=== PATIENT | female | born 1995 | race Two or more races ===

== ENCOUNTER 2024-01-30 16:01 | Emergency (ER) | payer BC, SELFPAY ==
[2024-01-30 16:44] VITALS: BP 152/99; PULSE 93; RESP 16; TEMP 37.3; O2SAT 97; BMI 37.4
--- NOTE | 2024-01-30 16:54 | XR_ITS ---
[address] [address] Patient Name: JOSEPHINE YE MRN: [id number] date: 1995 Sex: F Assigned Patient Location: ER Current Patient Location: ED.MAIN Accession/Order Number: [id number] Exam Date: 01/30/2024 17:47 Report Date: 01/30/2024 18:24 At the request of: JACINTO PURDY Procedure: XR chest 2V Exam: Radiographs: XR chest 2V Reason for exam: painful cough Comparison: None XR/XR chest 2V IMPRESSION: Unremarkable chest x-ray. Electronically authenticated by: LEMUEL PEDRO Date: 01/30/2024 18:24
[2024-01-30 17:44] LABS: SARS-CoV-2 Ag NEGATIVE (NEGATIVE)
[2024-01-30 17:45] LABS: Influenza Virus A Antigen Negative; Influenza Virus B Antigen Negative; Internal Control Within Normal Limits; Strep A Antigen Screen Negative
--- NOTE | 2024-01-30 18:22 | ED_ITS ---
HPI - URI/Sore Throat General Chief Complaint: Upper Respiratory Infection Stated Complaint: URTI - seen at Urgent Care on Tuesday Time Seen by Provider: 01/30/24 17:43 Source: patient Limitations: no limitations History of Present Illness HPI Narrative: Patient is a 28-year-old female who presents to the emergency department for second opinion on her upper respiratory illness. She states 1 week ago she went to urgent care for subjective fevers, chills, body aches, nasal congestion, cough, diarrhea. She had negative viral testing and was diagnosed with a sinus infection. She was placed on doxycycline and 20 mg of prednisone a day for 5 days. She is not concerned for . She states she has continued to have cough and chest congestion which is her primary concern. She states she does not believe she had a sinus infection and does not feel any better. Related Data Home Medications ?Medication ?Instructions ?Recorded ?Confirmed doxycycline hyclate 100 mg capsule 100 mg PO Q12H 01/30/24 01/30/24 levonorgestrel 0.15 mg-ethinyl 1 tab PO QDAY 01/30/24 01/30/24 estradiol 30 mcg tablets,3 mos pack(91) prednisone 20 mg tablet 20 mg PO QDAY 01/30/24 01/30/24 Previous Rx's ?Medication ?Instructions ?Recorded gqdidcrudyvazje-gylmaljwmlcfcpe-WI 10 ml PO Q6H PRN cold symptoms 01/30/24 2 mg-30 mg-10 mg/5 mL oral syrup #200 mL (Bromfed DM) methylprednisolone 4 mg tablets in See Rx Instructions .Route 01/30/24 a dose pack (Medrol (Sammy)) .COMPLEX #21 ea Allergies Allergy/AdvReac Type Severity Reaction Status Date / Time Cephalosporins Allergy Verified 01/30/24 16:41 Review of Systems ROS Constitutional Reports: fever and chills Ears, nose, mouth, and throat Reports: throat pain and nasal congestion Respiratory Reports: cough and change in phlegm color; Denies: coughing up blood Gastrointestinal Reports: diarrhea; Denies: nausea or vomiting Musculoskeletal Denies: back pain Integumentary/Breast Denies: rash Neurological Reports: headache Exam Narrative Exam Narrative: Gen.: Awake, alert, in no distress Head: Normocephalic, atraumatic ENT: Moist mucous membranes, Bilateral TMs clear. No pharyngeal erythema Respiratory: No respiratory distress, lungs clear bilaterally Cardio: Regular rate and rhythm Extremities: Moves extremities equally Psych: Normal mood and affect Neuro: No focal neuro deficit Skin: Warm, dry, intact Constitutional Vital Signs, click to edit/add: Last Vital Signs Temp 99.1 F 01/30/24 16:44 Pulse 93 H 01/30/24 16:44 Resp 16 01/30/24 16:44 BP 152/99 H 01/30/24 16:44 Pulse Ox 97 01/30/24 16:44 O2 Del Method Room Air 01/30/24 16:44 Course Vital Signs Vital signs: Vital Signs Temperature 99.1 F 01/30/24 16:44 Pulse Rate 93 H 01/30/24 16:44 Respiratory Rate 16 01/30/24 16:44 Blood Pressure 152/99 H 01/30/24 16:44 Pulse Oximetry 97 01/30/24 16:44 Oxygen Delivery Method Room Air 01/30/24 16:44 Temperature 99.1 F 01/30/24 16:44 Pulse Rate 93 H 01/30/24 16:44 Respiratory Rate 16 01/30/24 16:44 Blood Pressure 152/99 H 01/30/24 16:44 Pulse Oximetry 97 01/30/24 16:44 Oxygen Delivery Method Room Air 01/30/24 16:44 MDM - URI/Sore Throat MDM Narrative Medical decision making narrative: X-ray reviewed by myself and Dr. Green, appears unremarkable. Patient with stable vital signs. Repeated COVID, flu and strep testing which is negative. Patient counseled she likely had viral upper respiratory infection, possibly flu or COVID that did not turn positive on testing. She is given a steroid burst as she was very underdosed by urgent care. She was given Bromfed-DM and a Medrol Dosepak for home. Follow-up with PCP and return to the ER if symptoms change or worsen Medical Records Attestation: I reviewed the patient's medical records. Lab Data Attestation: I reviewed the patient's lab results. Labs: Lab Results 01/30/24 Range/Units 16:55 Influenza Type A Ag Negative Influenza Type B Ag Negative SARS-CoV-2 Ag (CV2AG) Negative (NEGATIVE) Streptococcus Screen Negative Imaging Data Chest x-ray: Attestation: I have reviewed the pertinent imaging results. Discharge Plan Discharge Stand Alone Forms: Portal Instructions Chief Complaint: Upper Respiratory Infection Clinical Impression: Upper respiratory infection Patient Disposition: Home, Self-Care Time of Disposition Decision: 18:22 Condition: Good Prescriptions / Home Meds: New methylprednisolone [Medrol (Sammy)] 4 mg tablets,dose pack See Rx Instructions .ROUTE .COMPLEX Qty: 21 0RF Rx Instructions: Taper as directed iqzydfvkvglufly-mzpzxcnwh-AJ [Bromfed DM] 2-30-10 mg/5 mL syrup 10 ml PO Q6H PRN (Reason: cold symptoms) Qty: 200 0RF No Action doxycycline hyclate 100 mg capsule 100 mg PO Q12H prednisone 20 mg tablet 20 mg PO QDAY levonorgestrel-ethinyl estrad 0.15 mg-30 mcg (91) tablets,dose pack,3 month 1 tab PO QDAY Print Language: Maldivian Instructions: Upper Respiratory Infection (ED), Viral Syndrome (ED) Referrals: Physician,Non-Staff, MD [Primary Care Provider] - 1 week
== END 2024-01-30 18:33 | disposition home or self-care (01) ==
PROVIDERS: Emergency Provider Emergency Medicine
DX: J06.9 Acute upper respiratory infection, unspecified (principal); Z20.822 Contact with and (suspected) exposure to COVID-19; Z79.3 Long term (current) use of hormonal contraceptives; Z79.899 Other long term (current) drug therapy
CPT/HCPCS: 71046; 87070; 87804; 87811; 87880; 99284

== ENCOUNTER 2025-09-19 18:46 | Outpatient (REF) | payer BC, SELFPAY ==
--- OUTSIDE RECORDS SUMMARY | 2025-09-19 14:00 | XMS_ITS | Encounter Summary ---
Author Organization [facility] Address [address] [place] [address] Care Team Providers Care Lap Cutter Name Role Phone Justino Sergey Gibson DO Primary Care Provider [phone] Katie Clark DRY COLOR TESTER Unavailable Reason for Visit * ReasonCommentsGynecologic Exam Encounter Details DateTypeDepartmentCare Team (Latest Contact Info)Kbdqcbggasi65/13/2025 2:00 PM ESTProcedure Visit NOMEnrique Berry OBJOVANNA [address] [place] [address] Katherine Khan PA [address] [place] [address] Well woman exam with routine gynecological exam Social History Tobacco UseTypesPacks/DayYears UsedDateSmoking Tobacco: NeverSmokeless Tobacco: NeverAlcohol UseStandard Drinks/WeekCommentsNever0 (1 standard drink = 0.6 oz pure alcohol)B1300 Health LiteracyAnswerDate RecordedHow often do you need to have someone help you when you read instructions, pamphlets, or other written material from your doctor or pharmacy?Often02/20/2025Humiliation, Afraid, Rape, and Kick questionnaireAnswerDate RecordedWithin the last year, have you been afraid of your partner or ex-partner?No02/20/2025Within the last year, have you been humiliated or emotionally abused in other ways by your partner or ex-partner?No02/20/2025Within the last year, have you been kicked, hit, slapped, or otherwise physically hurt by your partner or ex-partner?No02/20/2025Within the last year, have you been raped or forced to have any kind of sexual activity by your partner or ex-partner?02/20/2025Social Connection and Isolation Panel AnswerDate RecordedIn a typical week, how many times do you talk on the phone with family, friends, or neighbors?More than three times a week02/20/2025How often do you get together with friends or relatives?Once a week02/20/2025How often do you attend yarsanism or orthodox services?1 to 4 times per year02/20/2025 Do you belong to any clubs or organizations such as yarsanism groups, unions, fraEmotify or athletic groups, or school groups?No02/20/2025How often do you attend meetings of the clubs or organizations you belong to?Never02/20/2025re you , , , , never , or living with a partner?Never mcctqry6102/20/2025UDIT-CAnswerDate RecordedQ1: How often do you have a drink containing alcohol?Never02/20/2025Q2: How many drinks containing alcohol do you have on a typical day when you are drinking?1 or Q3: How often do you have six or more drinks on one occasion?Never02/20/2025Overall Financial Resource Strain (CARDIA)AnswerDate RecordedHow hard is it for you to pay for the very basics like food, housing, medical care, and heating?Not very hard02/20/2025PHQ-2AnswerDate RecordedPatient Health Questionnaire-2 Score0 05/20/2025Fin[facility] [place] of Occupational Health - Occupational Stress QuestionnaireAnswerDate RecordedDo you feel stress - tense, restless, nervous, or anxious, or unable to sleep at night because yourmind is troubled all the time - these days?To some otngnx4002/20/2025Exercise Vital SignAnswerDate Recorded On average, how many days per week do you engage in moderate to strenuous exercise (like a brisk walk)?3 days02/20/2025On average, how many minutes do you engage in exercise at this level?30 min02/20/2025Hunger Vital SignAnswerDate RecordedWithin the past 12 months, you worried that your food would run out before you got the money to buymore.Never true02/20/2025Within the past 12 months, the food you bought just didn't last and you didn't have money to get more.Never true02/20/2025PRAPARE - TransportationAnswerDate RecordedIn the past 12 months, has lack of transportation kept you from medical appointments or from getting medications?No02/20/2025In the past 12 months, has lack of transportation kept you from meetings, work, or from getting things needed for daily living?No02/20/2025Housing Stability Vital SignAnswerDate RecordedIn the last 12 months, was there a time when you were not able to pay the mortgage or rent on time?Yes02/20/2025In the past 12 months, how many times have you moved where you were living?t any time in the past 12 months, were you homeless or living in a halfway (including now)?No02/20/2025CommentsNo Sex and Gender InformationValueDate RecordedSex Assigned at BirthNot on file Legal PrcJjazmh05/15/2023 11:01 PM EDTGender IdentityNot on fileSexual OrientationNot on filedocumented as of this encounter Last Filed Vital Signs Vital SignReadingTime TakenCommentsBlood Hzjzjgvo984/7209/19/2025 1:53 PM EST Pulse--Temperature--Respiratory Rate--Oxygen Saturation--Inhaled Oxygen Concentration--Iriaex52.4 kg (164 lb)09/19/2025 1:53 PM SENFvisxg202.9 cm (5' 1 )09/19/2025 1:53 PM ESTBody Mass Index30.9909/19/2025 1:53 PM ESTdocumented in this encounter Progress Notes * Collette Salas MA - 09/19/2025 2:00 PM EST Reason for Appointment: Patient ID: Karena Kevin is a 30 y.o. female who presents for Gynecologic Exam Patient presents today for Annual Exam. MEDICATIONS Current Outpatient Medications Medication Instructions cholecalciferol (VITAMIN D-3) 5,000 Units, Daily ALLERGIES Allergies Allergen Reactions Cephalosporins Unknown and Hives Other Reaction(s): Hives Other Reaction(s): Not available Loracarbef hives Other Reaction(s): Rash PROBLEMS Active Ambulatory Problems Diagnosis Date Noted Anxiety disorder 01/31/2025 Chronic low back pain 01/31/2025 Depressive disorder 09/18/2021 Gastroesophageal reflux disease without esophagitis 03/18/2022 Major depression, single episode 01/31/2025 Menstrual disorder 01/31/2025 Obese abdomen 01/31/2025 Polycystic ovaries 01/31/2025 Vitamin D deficiency 01/31/2025 Bilateral carpal tunnel syndrome 02/18/2025 Resolved Ambulatory Problems Diagnosis Date Noted Chlamydial infection 12/15/2021 Past Medical History: Diagnosis Date Acid reflux Anxiety Depression PCOS (polycystic ovarian syndrome) HISTORY PAST MEDICAL HISTORY SOCIAL HISTORY Past Medical History: Diagnosis Date Acid reflux Anxiety Chlamydial infection 12/15/2021 Depression PCOS (polycystic ovarian syndrome) Social History Tobacco Use Smoking status: Never Smokeless tobacco: Never Vaping Use Vaping status: Never Used Substance Use Topics Alcohol use: Never Drug use: Never FAMILY HISTORY Family History Problem Relation Name Age of Onset Hypertension Father Dawood Kevin Diabetes Father Dawood Kevin Depression Sister 2 Anxiety disorder Sister 2 No Known Problems Brother 1 SURGICAL HISTORY Past Surgical History: Procedure Laterality Date ABCESS DRAINAGE EGD REVIEW OF SYSTEMS Review of Systems: Review of Systems Constitutional: Negative. HENT: Negative. Eyes: Negative. Respiratory: Negative. Cardiovascular: Negative. Gastrointestinal: Negative. Genitourinary: Negative. Musculoskeletal: Negative. Skin: Negative. Neurological: Negative. All other systems reviewed and are negative. Hematological: Negative. Endocrine: Negative. Allergic/Immunologic: Negative. OBJECTIVE Objective: Physical Exam Constitutional: Appearance: Normal appearance. She is well-developed. Genitourinary: Breasts: Breasts are soft. Right: Normal. Left: Normal. Cardiovascular: Rate and Rhythm: Normal rate and regular rhythm. Pulmonary: Effort: Pulmonary effort is normal. Breath sounds: Normal breath sounds. Abdominal: General: Bowel sounds are normal. There is no distension. Palpations: Abdomen is soft. Tenderness: There is no abdominal tenderness. There is no guarding or rebound. Musculoskeletal: General: No swelling. Normal range of motion. Right lower leg: No edema. Left lower leg: No edema. Neurological: Mental Status: She is alert and oriented to person, place, and time. Skin: General: Skin is warm and dry. Psychiatric: Mood and Affect: Mood normal. Behavior: Behavior normal. Vitals and nursing note reviewed. Exam conducted with a combination machine tender present. Vitals: Estimated body mass index is 30.99 kg/m?? as calculated from the following: Height as of this encounter: 5' 1 . Weight as of this encounter: 164 lb. BP: 110/72 Patient's last menstrual period was 08/22/2025 (approximate). Assessment/Plan ICD-10-CM 1. Well woman exam with routine gynecological exam Z01.419 Pap Smear HPV DNA probe, amplified Assessment/Plan Annual Exam: Patient presents today for an annual exam. Patient states she is doing well and has no complaints. Pap was obtained without difficulty. Orders Placed This Encounter Procedures HPV DNA probe, amplified Follow Up: Patient is to return in one year for annual unless needed otherwise. Documented by Collette Salas MA on behalf of: MCKAYLA Paniagua documented in this encounter Plan of Treatment DateTypeDepartmentCare Team (Latest Contact Info)Wthqeigvwpf07/20/2025 11:50 AM ESTOffice Visit [facility]i ZARATEGYTerrell [address] [place] [phone] Ander Vazquez DO [address] [place] [address] NameTypePriorityAssociated DiagnosesOrder SchedulePap SmearPathology and CytologyRoutine Well woman exam with routine gynecological exam Ordered: 09/19/2025HPV DNA probe, amplifiedMicrobiologyRoutine Well woman exam with routine gynecological exam Ordered: 09/19/2025documented as of this encounter Procedures Procedure NamePriorityDate/TimeAssociated DiagnosisCommentsPAP TEST, EXTERNAL Uorasoc1409/18/2020 12:00 AM ESTdocumented in this encounter Results * PAP TEST, EXTERNAL (09/18/2020 12:00 AM EST) Narrative Authorizing ProviderResult TypeResult StatusValerie Duncan House CNMLAB CYTOLOGY ORDERABLESFinal ResultPerforming OrganizationAddressCity/State/ZIP CodePhone Number EXTERNAL LAB documented in this encounter Visit Diagnoses Diagnosis Well woman exam with routine gynecological exam Routine gynecological examination documented in this encounter Care Teams Team MemberRelationshipSpecialtyStart DateEnd Date Sergey Badillo DO [address] [place] [address] PCP - [facility]01/31/25 Katie Clark NP [address] [place] [address] PCP - [facility]07/08/25documented as of this encounter
--- OUTSIDE RECORDS SUMMARY | 2025-09-19 18:51 | XMS_ITS | Clinical Summary ---
Author Organization [facility] Address [address] [place] [address] Care Team Providers Care Valve Lapper Name Role Phone Sergey Badillo DO Primary Care Provider [phone] Katie Clark WHITEWATER RAFTING GUIDE Unavailable Allergies Active AllergyReactionsCriticalityNoted DateCommentsCephalosporinsUnknown,Hives High10/29/2024 Other Reaction(s): Hives Other Reaction(s): Not available TjfjpdolkpJlwhqs13/11/2017 hives Other Reaction(s): Rash Medications MedicationSigDispense QuantityRefillsLast FilledStart DateEnd DateStatus cholecalciferol (Vitamin D-3) 125 MCG (5000 UT) capsule Take 5,000 Units by mouth DailyActive Active Problems ProblemNoted DateDiagnosed DateBilateral carpal tunnel unozdfhk93/14/2025nxiety yozvticm43/27/2025hronic low back pain01/31/2025Major depression, single tqjhise2501/31/2025Menstrual pnyzbnvx20/27/2025Obese vwdrhdg0901/31/2025Polycystic xfsecxe0301/31/2025Vitamin D ltorluvwvy89/27/2025Gastroesophageal reflux disease without onbpvtmeqgb04/12/2022epressive syukobly34/12/2021 Resolved Problems ProblemNoted DateDiagnosed DateResolved DateChlamydial gkrdmbobh73/08/2022 01/31/2025 Encounters DateTypeDepartmentCare IkihAfzvnufshwh36/13/2025 2:00 PM ESTProcedure Visit [facility] Kristi OBTerrell [address] [place] [address] [place] [address] Katherine Khan PA Well woman exam with routine gynecological exam09/19/2025amb flowsheet [facility] OBHOWARDN [address] [place] [address] Katherine Khan PA 08/27/2025 1:10 PM EDTOffice Visit [facility] COLEMAN [address] [place] [address] Ander Vazquez DO PCOS (polycystic ovarian syndrome); Abnormal uterine bleeding (AUB)08/27/2025[facility] [address] [place] [address] Ander Vazquez DO from Last 3 Months Immunizations ImmunizationAdministration DatesNext DueDTP / HiB08/17/1996,1995, 1995,1995DTaP, Pahlmeqqkkf82/09/2000Hep B, Adolescent or Pediatric 02/12/2000,1995,1995,1995MMR06/17/1998,06/06/1996OPV01/14/2000 ,1995,1995,1995 Family History Medical HistoryRelationNameCommentsNo Known GqnhfpdlVsgqrey9UzeohoaxZltsljFikbb RomeroHypertensionFatherCesar RomeroAnxiety nvpbdpxvZonjvj1IzfnlcnmjiOxcobx5 XeixilnfTqazYtmgqoPdcfzfiwGknbmis6TlhfdOedwtrWryum RomeroAliveMotherAliveSister2 Alive Social History Tobacco UseTypesPacks/DayYears UsedDateSmoking Tobacco: NeverSmokeless Tobacco: Never Tobacco Cessation:Counseling Given: Yes Alcohol UseStandard Drinks/WeekCommentsNever0 (1 standard drink = 0.6 [...] in other ways by your partner or ex-partner?02/20/2025Within the last year, have you been kicked, hit, slapped, or otherwise physically hurt by your partner or ex-partner?02/20/2025Within the last year, have you been raped or forced to have any kind of sexual activity by your partner or ex-partner?No02/20/2025Social Connection and Isolation Panel AnswerDate RecordedIn a typical week, how many times do you talk on the phone with family, friends, or neighbors?More than three times a week02/20/2025How often do you get together with friends or relatives?Once a week02/20/2025How often do you attend spiritism or congregational services?1 to 4 times per year02/20/2025 Do you belong to any clubs or organizations such as spiritism groups, unions, fraCSRware or athletic groups, or school groups?No02/20/2025How often do you attend meetings of the clubs or organizations you belong to?Never02/20/2025re you , , , , never , or living with a partner?Never cuxejgy9302/20/2025UDIT-CAnswerDate RecordedQ1: How often do you have a [...] heating?Not very hard02/20/2025PHQ-2AnswerDate RecordedPatient Health Questionnaire-2 Score0 05/20/2025Fin[facility] [place] of Occupational Health - Occupational Stress QuestionnaireAnswerDate RecordedDo you feel stress - tense, restless, nervous, or anxious, or unable to sleep at night because yourmind is troubled all the time - these days?To some vdpnpu8002/20/2025Exercise Vital SignAnswerDate Recorded On average, how many [...] were you homeless or living in a senior living (including now)?No02/20/2025CommentsNo Sex and Gender InformationValueDate RecordedSex Assigned at BirthNot on file Legal DntFdvllt84/15/2023 11:01 PM EDTGender IdentityNot on fileSexual OrientationNot on file Last Filed Vital Signs Vital SignReadingTime TakenCommentsBlood Yjijacjf497/7211 1:53 PM EST Rkwdd807805/20/2025 9:33 AM SDWFpghixocamo36.8 ??C (98.2 ??F)05/20/2025 9:33 AM EDTRespiratory Rate--Oxygen Okznbdgcpq86%05/20/2025 9:33 AM EDTInhaled Oxygen Concentration--Kfuqun89.4 kg (164 lb)09/19/2025 1:53 PM CHXLndonn726.9 cm (5' 1 )09/19/2025 1:53 PM ESTBody Mass Index30.9909/19/2025 1:53 PM EST Plan of Treatment DateTypeDepartmentCare Team (Latest Contact Info)Nwwltjdkewr68/20/2025 11:50 AM ESTOffice Visit [facility] [address] [place] [phone] Ander Vazquez, [address] [place] [address] Health MaintenanceDue DateLast DoneCommentsPap SmearCOVID-19 Vaccine ( season)2025Influenza Vaccine (#1)5Cervical Cancer Iaxgykkso34/12/2025HPV/Wapxpd68Pneumococcal Vaccine: Pediatrics (0 to 5 Years) and At-Risk Patients (6 to 64 Years)Aged OutNo longer eligible based on patient's age to complete this topic Procedures Procedure NamePriorityDate/TimeAssociated DiagnosisCommentsQ - THINPREP(R) TIS AND HPV MRNA E6/E7 RFL HPV 16,18/50Hpeimmj87/12/2020 PAP TEST, WKAROJXOLivfuvj50/12/2020 12:00 AM ESTfrom Last 3 Months or Most Recently Relevant to Health Maintenance Results * PAP TEST, EXTERNAL (09/18/2020 12:00 AM EST) Narrative Authorizing ProviderResult TypeResult StatusValerinidhi House CNMLAB CYTOLOGY ORDERABLESFinal ResultPerforming OrganizationAddressCity/State/ZIP CodePhone Number EXTERNAL LAB * Q - THINPREP(R) TIS AND HPV MRNA E6/E7 RFL HPV 16,18/45 (09/18/2020)Component ValueRef RangeTest MethodAnalysis TimePerformed AtPathologist Signature CLINICAL INFORMATION:None givenNOMS LEGACY EXTERNAL LABLMP:None givenNOMS LEGACY EXTERNAL LABPREV. PAP:None givenNOMS LEGACY EXTERNAL LABPREV. BX:None givenN[facility]S LEGACY EXTERNAL LABSOURCE:None givenN[facility]S LEGACY EXTERNAL LAB STATEMENT OF ADEQUACY:SEE NOTENOID LEGACY EXTERNAL LABComment: Satisfactory for evaluation. Endocervical/transformation zone component absent. INTERPRETATION/RESULT:Negative for intraepithelial lesion or malignancy.[facility] EXTERNAL LABINFECTION:SEE NOTENOMS LEGACY EXTERNAL LABComment: Shift in vaginal shayan suggestive of bacterial vaginosis. Fungal organisms morphologically consistent with Antonia spp. COMMENT:This Pap test has been evaluated with computer assisted technology.[facility] EXTERNAL LABCYTOTECHNOLOGIST:SEE NOTENOID LEGACY EXTERNAL LABComment: BH, CT(ASCP) CT screening location: [place] [address]. COMMENTSEE NOTENOID LEGACY EXTERNAL LABComment: EXPLANATORY NOTE: The Pap is a screening test for cervical cancer. It is not a diagnostic test and is subject to false negative and false positive results. It is most reliable when a satisfactory sample, regularly obtained, is submitted with relevant clinical findings and history, and when the Pap result is evaluated along with historic and current clinical information. HPV MRNA E6/E7Not DetectedNot DetectedNOID LEGACY EXTERNAL LABComment: This test was performed using the APTIMA HPV Assay ([employer] This assay detects E6/E7 viral messenger RNA (mRNA) from 14 high-risk HPV types (16,18,31,33,35,39,45,51,52,56,58,59,66,68). The analytical performance characteristics of this assay have been determined by [employer]. The modifications have not been cleared or approved by the FDA. This assay has been validated pursuant to the CLIA regulations and is used for clinical purposes. Specimen (Source)Anatomical Location / LateralityCollection Method / Volume Collection TimeReceived Time09/18/2020 Narrative Authorizing ProviderResult TypeResult StatusValeramón House CNMECW LABSFinal ResultPerforming OrganizationAddressCity/State/ZIP CodePhone Number [facility] EXTERNAL LAB from Last 3 Months or Most Recently Relevant to Health Maintenance Insurance Care Teams Team MemberRelationshipSpecialtyStart DateEnd Date Sergey Badillo DO [address] [place] [address] [facility] - [facility]25 Katie Clark NP [address] [place] [address] PCP - [facility]07/08/25
--- OUTSIDE RECORDS SUMMARY | 2025-09-19 18:51 | XMS_ITS | Clinical Summary ---
Author Organization [employer] tem Address [id number] [address] [place] [address] Care Team Providers Care Receivable Executive Name Role Phone Services, [facility] Primary Care Provider Allergies Active AllergyReactionsCriticalityNoted AqlxMcqiwrylVixlawyrmirbhq76/23/2024 ZjzujrlqxuPcsiad53/11/2017 hives Medications MedicationSigDispense QuantityRefillsLast FilledStart DateEnd DateStatus metFORMIN XR (GLUCOPHAGE XR) 500 mg 24 hr tablet Take 1 tablet (500 mg total) by mouth daily with breakfast.05/30/2023ctive Active Problems ProblemNoted DateDiagnosed DateGastroesophageal reflux disease without intvmwqntpj19/02/2023Upper respiratory ahfrynlbb61/02/2023 Social History Tobacco UseTypesPacks/DayYears UsedDateSmoking Tobacco: NeverSmokeless Tobacco: NeverAlcohol UseStandard Drinks/WeekCommentsNo0 (1 standard drink = 0.6 oz pure alcohol)AUDIT-CAnswerDate RecordedFrequency of Alcohol ConsumptionNever 09/11/2018Average Number of DrinksNot on file09/11/2018Frequency of Binge DrinkingNot on file09/11/2018ChildcareAnswerDate RecordedChildcareUnknown 04/18/2019EmploymentAnswerDate NccecahwMsjrzzenvpByhyytd81/12/2019Hunger ScreeningAnswerDate RecordedWithin the past 12 months we worried whether our food would run out before we got money to buy more.Never True10/29/2024Within the past 12 months the food we bought just didn't last and we didn't have money to get more.Never True10/29/2024urpose - LifeAnswerDate RecordedPurpose and direction in sythOypafak71/11/2021CommentsUnknownSex and Gender InformationValueDate RecordedSex Assigned at BirthNot on fileLegal SexFemale 06/12/2015 11:50 AM EDTGender IdentityNot on fileSexual OrientationNot on file Last Filed Vital Signs Vital SignReadingTime TakenCommentsBlood Rxtlsnns374/6310/29/2024 4:10 PM EST Kcfuc711210/29/2024 4:10 PM VIXYbqroeagypn59.8 ??C (98.2 ??F)10/29/2024 2:45 PM ESTRespiratory Cayn314410/29/2024 4:10 PM ESTOxygen Mmvmnpsxms819%10/29/2024 4:10 PM ESTInhaled Oxygen Concentration--Yswxlt869.8 kg (242 lb)10/29/2024 1:59 PM UDCQjaufg917.9 cm (5' 1 )10/29/2024 1:59 PM ESTBody Mass Index45.7310/29/2024 1:59 PM EST Plan of Treatment Health MaintenanceDue DateLast DoneCommentsDTaP,Tdap and Td Vaccines (6 - Tdap) , 08/17/1996, 1995, Additional history exists Depression Tybablxen30/02/2007dult BMI Follow Up Plan2013Pap Smear 2016Influenza Nzygeom9107/08/2025dult BMI Xojkizvek90 Tobacco Axnfjdyyt05 Medical Devices Not on file Insurance Care Teams Team MemberRelationshipSpecialtyStart DateEnd Date Services, [facility] [address] [place], [place] PCP - GeneralFahily Exfgkhwp83/5/18
--- OUTSIDE RECORDS SUMMARY | 2025-09-19 18:52 | XMS_ITS | Encounter Summary ---
Author Organization [facility] Address [address] [place] [address] Care Team Providers Care Jewel Flat Surfacer Name Role Phone Arielrosaura Sergey Gibson DO Primary Care Provider [phone] Katie Clark ATTENDANT CHILD ACTIVITY Unavailable Encounter Details DateTypeDepartmentCare Team (Latest Contact Info)Srymfttibma72/13/2025amboo flowsheet DARRIAN [place] OBJOVANNA [address] [facility] [place] [address] Katherine Khan PA [address] [place], [facility]11 Social History Tobacco UseTypesPacks/DayYears UsedDateSmoking Tobacco: NeverSmokeless [...] relatives?Once a week02/20/2025How often do you attend yazidi or yarsani services?1 to 4 times per year02/20/2025 Do you belong to any clubs or organizations such as yazidi groups, unions, fraXeebel or athletic groups, or school groups?No02/20/2025How often do you attend meetings of the clubs or organizations you belong to?Never02/20/2025re you , , , , never , or living with a partner?Never hrlmvly4702/20/2025UDIT-CAnswerDate RecordedQ1: How often do you have a [...] heating?Not very hard02/20/2025PHQ-2AnswerDate RecordedPatient Health Questionnaire-2 Score0 05/20/2025[facility] [place] [facility] - Occupational Stress QuestionnaireAnswerDate RecordedDo you feel stress - tense, restless, nervous, or anxious, or unable to sleep at night because yourmind is troubled all the time - these days?To some hnfzzi9902/20/2025Exercise Vital SignAnswerDate Recorded On average, how many [...] were you homeless or living in a long term (including now)?No02/20/2025CommentsNo Sex and Gender InformationValueDate RecordedSex Assigned at BirthNot on file Legal MwyEjxlvu89/15/2023 11:01 PM EDTGender IdentityNot on fileSexual OrientationNot on filedocumented as of this encounter Plan of Treatment DateTypeDepartmentCare Team (Latest Contact Info)Gcxpnyjigxi26/20/2025 11:50 AM ESTOffice Visit [facility] [address] [facility] [place] [phone] Ander Vazquez DO [address] [facility] [address] [place] [address] documented as of this encounter Visit Diagnoses Not on filedocumented in this encounter Care Teams Team MemberRelationshipSpecialtyStart DateEnd Date Sergey Badillo DO [address] [place] [address] PCP - GeneralFamily Medicine01/31/25 Katie Clark, SANDIE [address] [place] [address] PCP - [employer] [employer]07/08/25documented as of this encounter
== END 2025-09-19 18:47 | disposition home or self-care (01) ==
LOC: LAB 18:46
PROVIDERS: Visit Provider Physician Assistant
DX: Z01.419 Encounter for gynecological examination (general) (routine) without abnormal findings (principal)
CPT/HCPCS: 87624; 88175

== ENCOUNTER 2025-10-07 09:48 | Emergency (ER) | payer BC, SELFPAY ==
[2025-10-07 09:54] VITALS: BP 115/76; PULSE 95; TEMP 36.8; O2SAT 100; BMI 30.2
--- NOTE | 2025-10-07 10:08 | ED_ITS ---
HPI HPI - Back Pain/Injury General Chief Complaint: Back Pain/Injury Stated Complaint: BACK PAIN Time Seen by Provider: 10/07/25 09:56 History of Present Illness HPI Narrative: The patient presented to the ER with a right upper back pain mostly right lower chest pain that started yesterday night, no exacerbating factor it just is a ache that mostly triggered by moving mostly leaning forward, the patient denies any fever chills or any other concerns she mentioned that when taking deep breath it hurts No history of any recent trips or any cough fever or any other concerns Related Data Home Medications ?Medication ?Instructions ?Recorded ?Confirmed doxycycline hyclate 100 mg capsule 100 mg PO Q12H 01/0601/30/24 levonorgestrel 0.15 mg-ethinyl 1 tab PO QDAY 01/30/24 01/30/24 estradiol 30 mcg tablets,3 mos pack(91) prednisone 20 mg tablet 20 mg PO QDAY 01/30/2401/29 Previous Rx's ?Medication ?Instructions ?Recorded iogzktludlmawzc-mbzsnarujghldwm-HH 10 ml PO Q6H PRN co ld symptoms 01/30/24 2 mg-30 mg-10 mg/5 mL oral syrup #200 mL (Bromfed DM) methylprednisolone 4 mg tablets in See Rx Instructions .Route 01/30/24 a dose pack (Medrol (Sammy)) .COMPLEX #21 ea diclofenac sodium 75 mg 75 mg PO BID PRN pain #20 ta bs 10/07/25 tablet,delayed release orphenadrine citrate 100 mg 100 mg PO DAILY PRN muscle spasm 10/07/25 tablet,extended release #10 tabs Allergies Allergy/AdvReac Type Severity Reaction Status Date / Time Cephalosporins Allergy Hives Verified 10/07/25 09:54 Opioid HPI Opioid Management Most Recent Opioid Data: Last Pain Scale 8 Today, 09:54 Review of Systems ROS Status of ROS 10 or more systems reviewed and unremark able except as noted in history and below PFSH PFSH Social History Little interest or pleasure in doing things: not at all Feeling down, depressed, or hopeless: not at all Exam Narrative Exam Narrative: Nurses notes and vital signs reviewed and patient is not hypoxic. General: Well-appearing and in no apparent distress. Skin: Warm, dry, no pallor noted. No rash. Head: Normocephalic, atraumatic. Neck: Supple, non-tender. Cardiovascular: Regular Rate and Rhythm without murmur, gallop or rub. Respiratory: No accessory muscle use or respiratory distress. Lungs are clear to auscultation, no wheezing, rales or rhonchi Chest Wall: Right lower chest wall tenderness mostly just below the right scapula. No ecchymosis no other concerns Back: No midline thoracic or lumbar vertebral tenderness. No CVA tenderness Musculoskeletal: normal ROM, no calf or popliteal tenderness, no lower extremity edema/swelling GI: Abdomen is soft, non-distended. Normal bowel sounds. No masses appreciated. No tenderness to palpation. No rebound, guarding, or rigidity noted. Neurological: A&O x4. No cranial nerve dysfunction observed. No truncal ataxia. Moves all extremities. Sensation intact. Psychiatric: Cooperative and interactive. Normal mood and affect. Constitutional Vital Signs, click to edit/add: Last Vital Signs Temp 98.3 F 10/07/25 09:54 Pulse 95 H 10/07/25 09:54 Resp 18 10/07/25 09:54 BP 115/76 10/07/25 09:54 Pulse Ox 100 10/07/25 09:54 O2 Del Method Room Air 10/07/25 09:54 Course Vital Signs Vital signs: Vital Signs Temperature 98.3 F 10/07/25 09:54 Pulse Rate 95 H 10/07/25 09:54 Respiratory Rate 18 10/07/25 09:54 Blood Pressure 115/76 10/07/25 09:54 Pulse Oximetry 100 10/07/25 09:54 Oxygen Delivery Method Room Air 10/07/25 09:54 Temperature 98.3 F 10/07/25 09:54 Pulse Rate 95 H 10/07/25 09:54 Respiratory Rate 18 10/07/25 09:54 Blood Pressure 115/76 10/07/25 09:54 Pulse Oximetry 100 10/07/25 09:54 Oxygen Delivery Method Room Air 10/07/25 09:54 MDM - Back Pain/Injury MDM Narrative Medical decision making narrative: The patient presents to us with a chest wall pain that mostly there whenever she take a deep breath or lean forward Right now the patient was treated in the ER with Toradol discharged home with Voltaren as well as Norflex The patient was instructed about coming back to the ER in case of any new symptoms or concerns The patient does not take any contraceptive right now there is no risk factor for PE but she was instructed in case of any new symptoms to come back to the ER The patient to follow-up with the primary care within 2 to 3 days and to come back to the ER in case of any worsening of the current symptoms or any new symptoms or concerns Discharge Plan Discharge Chief Complaint: Back Pain/Injury Clinical Impression: Chest wall pain Patient Disposition: Home, Self-Care Time of Disposition Decision: 10:11 Condition: Good Prescriptions / Home Meds: New diclofenac sodium 75 mg tablet,delayed release (DR/EC) 75 mg PO BID PRN (Reason: pain) Qty: 20 0RF orphenadrine citrate 100 mg tablet extended release 100 mg PO DAILY PRN (Reason: muscle spasm) Qty: 10 0RF No Action doxycycline hyclate 100 mg capsule 100 mg PO Q12H prednisone 20 mg tablet 20 mg PO QDAY levonorgestrel-ethinyl estrad 0.15 mg-30 mcg (91) tablets,dose pack,3 month 1 tab PO QDAY methylprednisolone [Medrol (Sammy)] 4 mg tablets,dose pack See Rx Instructions .ROUTE .COMPLEX Qty: 21 0RF Rx Instructions: Taper as directed lpwnkwmcqfekhlm-npqcywqrr-EY [Bromfed DM] 2-30-10 mg/5 mL syrup 10 ml PO Q6H PRN (Reason: cold symptoms) Qty: 200 0RF Print Language: South Korean Instructions: Chest Wall Pain (ED) Referrals: Physician,Non-Staff, MD [Primary Care Provider] - 1 week
--- OUTSIDE RECORDS SUMMARY | 2025-10-07 10:21 | XMS_ITS | Clinical Summary ---
Author Organization [facility] Address [address] [place] [address] Care Team Providers Care Powder Truck Driver Name Role Phone Arielrosaura Sergey Gibson DO Primary Care Provider [phone] Katie Clark NON DESTRUCTIVE TESTING SUPERVISOR Unavailable Allergies Active AllergyReactionsCriticalityNoted DateCommentsCephalosporinsUnknown,Hives High10/29/2024 Other Reaction(s): Hives Other Reaction(s): Not available GigzzkpxdhZhwgsu07/11/2017 hives Other Reaction(s): Rash Medications MedicationSigDispense QuantityRefillsLast FilledStart DateEnd DateStatus cholecalciferol (Vitamin D-3) 125 MCG (5000 UT) capsule Take 5,000 Units by mouth DailyActive Active Problems ProblemNoted DateDiagnosed DateBilateral carpal tunnel paxvtvcb95/14/2025nxiety gtefrccj22/27/2025hronic low back pain01/31/2025Major depression, single ttqbahh6401/31/2025Menstrual gavodirx70/27/2025Obese iryxrfa5201/31/2025Polycystic lndclvg0401/31/2025Vitamin D psufwgzakn22/27/2025Gastroesophageal reflux disease without ckmylgcmakh48/12/2022epressive awibjwjc03/12/2021 Resolved Problems ProblemNoted DateDiagnosed DateResolved DateChlamydial iabzgjbji82/08/2022 01/31/2025 Encounters DateTypeDepartmentCare ArvvQlbgrqfpypb98/21/2025Orders Only [facility] [address] [place] [address] Marcy Leahy LPN 09/19/2025 2:00 PM ESTProcedure Visit [facility] OBJOVANNA [address] [place] [address] Katherine Khan PA Well woman exam with routine gynecological exam09/19/2025linisync Result Encounter [facility] External Department Unsolicited Katherine Khan PA 5Bamboo flowsheet [facility] OBJOVANNA [address] [place] [address] Katherine Khan PA 08/27/2025 1:10 PM EDTOffice Visit [facility] COLEMAN [address] [place] [address] Ander Vazquez DO PCOS (polycystic ovarian syndrome); Abnormal uterine bleeding (AUB)5Bamboo flowsheet [facility] COLEMAN [address] [place] [phone] Ander Vazquez DO from Last 3 Months Immunizations ImmunizationAdministration DatesNext DueDTP / HiB08/17/1996,1995, 1995,1995DTaP, Yasxmxbuged12/09/2000Hep B, Adolescent or Pediatric 02/12/2000,1995,1995,1995MMR06/17/1998,06/06/1996OPV01/14/2000 ,1995,1995,1995 Family History Medical HistoryRelationNameCommentsNo Known KpmxsxanApddaxj8EraudykpNwrwvsKxvuh RomeroHypertensionFatherCesar RomeroAnxiety qdqdrqsbRdbzvm2TbwnombdunKvrhvm8 UzwlybjkUthhJlncrrRtnzowbrVxgelys5NdzpoVhkgunKfrtn RomeroAliveMotherAliveSister2 Alive Social History Tobacco UseTypesPacks/DayYears UsedDateSmoking [...] relatives?Once a week02/20/2025How often do you attend mandaeism or roman catholic services?1 to 4 times per year02/20/2025 Do you belong to any clubs or organizations such as mandaeism groups, unions, fraternal or athletic groups, or school groups?No02/20/2025How often do you attend meetings of the clubs or organizations you belong to?Never02/20/2025re you , , , , never , or living with a partner?Never mliuaiv9902/20/2025UDIT-CAnswerDate RecordedQ1: How often do you have a [...] heating?Not very hard02/20/2025PHQ-2AnswerDate RecordedPatient Health Questionnaire-2 Score0 05/20/2025[facility] - Occupational Stress QuestionnaireAnswerDate RecordedDo you feel stress - tense, restless, nervous, or anxious, or unable to sleep at night because yourmind is troubled all the time - these days?To some kgfhzq3102/20/2025Exercise Vital SignAnswerDate Recorded On average, how many [...] RecordedSex Assigned at BirthNot on file Legal HmmVzqspg46/15/2023 11:01 PM EDTGender IdentityNot on fileSexual OrientationNot on file Last Filed Vital Signs Vital SignReadingTime TakenCommentsBlood Bokrwuta070/7211/ 1:53 PM EST Ppcja051305/20/2025 9:33 AM XOEKpbtdjkmdig48.8 ??C (98.2 ??F)05/20/2025 9:33 AM EDTRespiratory Rate--Oxygen Pdgrjrmnuz83%05/20/2025 9:33 AM EDTInhaled Oxygen Concentration--Ourwzw89.4 kg (164 lb)09/19/2025 1:53 PM GYZDvieto627.9 cm (5' 1 )09/19/2025 1:53 PM ESTBody Mass Index30.9909/19/2025 1:53 PM EST Plan of Treatment DateTypeDepartmentCare Team (Latest Contact Info)Lfpzrfpxvuh48/08/2025 2:50 PM ESTOffice Visit [facility] [address] [place] [address] Ander Vazquez, [address] [place] [address] Health MaintenanceDue DateLast DoneCommentsCOVID-19 Vaccine ( season) 2025Influenza Vaccine (#1)2025HPV/Mpcsvo82Cervical Cancer Mwwrydduk25/13/2028Pap Smear, 09/18/2020Pneumococcal Vaccine: Pediatrics (0 to 5 Years) and At-Risk Patients (6 to 64 Years)Aged Out No longer eligible based on patient's age to complete this topic Procedures Procedure NamePriorityDate/TimeAssociated DiagnosisCommentsIGP,APTIMA HPV,AGE YHESNoffanh75/13/2025 1:48 PM EST PAP TEST, MTJMRGIYHrcctrz13/13/2025 12:00 AM ESTQ - THINPREP(R) TIS AND HPV MRNA E6/E7 RFL HPV 16,18/37Wuwipyx43/12/2020 from Last 3 Months or Most Recently Relevant to Health Maintenance Results * IGP,APTIMA HPV,AGE GDLN (09/19/2025 1:48 PM EST)ComponentValueRef RangeTest MethodAnalysis TimePerformed AtPathologist SignatureAGE GDLN ACOG TESTINGNote. TBHComment: ?? TESTS ? RESULT ??FLAG ??UNITS ?REF RANGE ??LAB ?? Clinician Provided Cytology Information ?? Source.............Cervix;Endocervix ?? No. of containers..01 ThinPrep Vial Age Algo ACOG Loretta... ??30-65 ? 01 ?FLAG LEGEND: ?L-Low Normal,H-High Normal,LL-Alert Low,HH-Alert High <-Panic Low,>-Panic High,A-Abnormal,AA-Critical Abnormal Performed at: 01 =G ?[facility] [place] ?? [address] [place] [place], [place] ??[phone] ?? Kimberly Barnard MD, IGP, APTIMA HPV, RFX 16/18,45Note.TBHComment: ?? TESTS ? RESULT ??FLAG ??UNITS ?REF RANGE ??LAB DIAGNOSIS: ?02 ?? NEGATIVE FOR INTRAEPITHELIAL LESION OR MALIGNANCY. Specimen adequacy: ?02 ?? Satisfactory for evaluation. ??Endocervical and/or squamous metaplastic ?? cells (endocervical component) are present. Performed by: ? 02 ?? Moon Corado, Supervisor [employer] (ASCP) . ? 02 Note: ? Note ?02 ?? The Pap smear is a screening test designed to aid in the ?? detection of premalignant and malignant conditions of the ?? uterine cervix. ??It is not a diagnostic procedure and ?? should not be used as the sole means of detecting cervical ?? cancer. ??Both false-positive and false-negative reports do ?? occur. Test Methodology: ? Note ?02 ?? This liquid based ThinPrep(R) pap test was interpreted ?? using the [employer](R) Genius(TM) Cervical Algorithm whole ?? slide imaging system. HPV Genotype Reflex ?? Note ?02 ?? Criteria not met, HPV Genotype not performed. ?FLAG LEGEND: ?L-Low Normal,H-High Normal,LL-Alert Low,HH-Alert High <-Panic Low,>-Panic High,A-Abnormal,AA-Critical Abnormal Performed at: 02 WB ?[facility] ?? [address], [place] ??[phone] ?? Kimberly Barnard MD, HPV APTIMANegativeNegativeTBHComment: This nucleic acid amplification test detects fourteen high- risk HPV types (16,18,31,33,35,39,45,51,52,56,58,59,66,68) without differentiation. Performed at: ??=G - [address] ??[id number] Pick Up Worker: Kimberly Barnard MD, Phone: ??[phone] Performed at: ??WB - [address] ??[id number] Pick Up Worker: Kimberly Barnard MD, Phone: ??[phone] Specimen (Source)Anatomical Location / LateralityCollection Method / Volume Collection TimeReceived Time09/19/2025 1:48 PM EST09/19/2025 7:54 PM EST Narrative CLIN[facility]NC - 09/24/2025 12:14 PM EST BRUSH-SPATULA CERVIX ENDOCERVIX Authorizing ProviderResult TypeResult StatusBoston [facility] BLOOD ORDERABLES Final ResultPerforming OrganizationAddressCity/State/ZIP CodePhone Number CLINISYNC TB[facility] * PAP TEST, EXTERNAL (09/19/2025 12:00 AM EST) Narrative Authorizing ProviderResult TypeResult StatusFazio Nurse [facility] ObLAB CYTOLOGY ORDERABLESFinal ResultPerforming OrganizationAddressCity/State/ZIP CodePhone Number EXTERNAL LAB * Q - THINPREP(R) TIS AND HPV MRNA E6/E7 RFL HPV 16,18/45 (09/18/2020)Component ValueRef RangeTest MethodAnalysis TimePerformed AtPathologist Signature CLINICAL INFORMATION:None givenNOMS LEGACY EXTERNAL LABLMP:None givenN[facility] LEGACY EXTERNAL LABPREV. PAP:None givenN[facility]S LEGACY EXTERNAL LABPREV. BX:None givenNOMS LEGACY EXTERNAL LABSOURCE:None givenNOMT LEGACY EXTERNAL LAB STATEMENT OF ADEQUACY:SEE NOTELOUR[facility] EXTERNAL LABComment: Satisfactory for evaluation. Endocervical/transformation zone component absent. INTERPRETATION/RESULT:Negative for intraepithelial lesion or malignancy.[facility] EXTERNAL LABINFECTION:SEE [facility] EXTERNAL LABComment: Shift in vaginal shayan suggestive of bacterial vaginosis. Fungal organisms morphologically consistent with Antonia spp. COMMENT:This Pap test has been evaluated with computer assisted technology.[facility] EXTERNAL LABCYTOTECHNOLOGIST:SEE NOTELOURDES [facility] EXTERNAL LABComment: , CT(ASCP) CT screening location: [place] [address]. COMMENTSEE NOTENOMT LEGACY EXTERNAL LABComment: EXPLANATORY NOTE: The Pap [...] current clinical information. HPV MRNA E6/E7Not DetectedNot DetectedNOMS LEGACY EXTERNAL LABComment: This test was performed using the APTIMA HPV Assay ([employer] This assay detects E6/E7 viral messenger RNA (mRNA) from 14 high-risk HPV types (16,18,31,33,35,39,45,51,52,56,58,59,66,68). The analytical performance characteristics of this assay have been determined by [employer]. The modifications have not been cleared or approved by the FDA. This assay has been validated pursuant to the CLIA regulations and is used for clinical purposes. Specimen (Source)Anatomical Location / LateralityCollection Method / Volume Collection TimeReceived Time09/18/2020 Narrative Authorizing ProviderResult TypeResult StatusKary House CNMECW LABSFinal ResultPerforming OrganizationAddressCity/State/ZIP CodePhone Number [facility] EXTERNAL LAB from Last 3 Months or Most Recently Relevant to Health Maintenance Insurance Care Teams Team MemberRelationshipSpecialtyStart DateEnd Date Sergey Badillo DO [address] [place] [address] PCP - GeneralFamily Medicine01/31/25 Katie Clark NP [address] [place] [address] PCP - [facility]07/08/25
--- OUTSIDE RECORDS SUMMARY | 2025-10-07 10:21 | XMS_ITS | Clinical Summary ---
Author Organization [employer] tem Address [id number] [address] [place] [address] Care Team Providers Care Lithopone Charger Name Role Phone Services, [facility] Primary Care Provider Allergies Active AllergyReactionsCriticalityNoted BjexPlqgwsvxQtgbergooohqhu11/23/2024 VqgsjlkroaEqudcu47/11/2017 hives Medications MedicationSigDispense QuantityRefillsLast FilledStart DateEnd DateStatus metFORMIN XR (GLUCOPHAGE XR) 500 mg 24 hr tablet Take 1 tablet (500 mg total) by mouth daily with breakfast.3Active Active Problems ProblemNoted DateDiagnosed DateGastroesophageal reflux disease without qgbwqwgouqb99/02/2023Upper respiratory ekxexeikj88/02/2023 Social History Tobacco UseTypesPacks/DayYears UsedDateSmoking Tobacco: NeverSmokeless Tobacco: NeverAlcohol UseStandard Drinks/WeekCommentsNo0 (1 standard drink = 0.6 oz pure alcohol)AUDIT-CAnswerDate RecordedFrequency of Alcohol ConsumptionNever 09/11/2018Average Number of DrinksNot on file09/11/2018Frequency of Binge DrinkingNot on file09/11/2018ChildcareAnswerDate RecordedChildcareUnknown 04/18/2019EmploymentAnswerDate VikcxyrxKawgplgbjaYxdmcpz97/12/2019Hunger ScreeningAnswerDate RecordedWithin the past 12 months we worried whether our food would run out before we got money to buy more.Never True10/29/2024Within the past 12 months the food we bought just didn't last and we didn't have money to get more.Never True10/29/2024urpose - LifeAnswerDate RecordedPurpose and direction in pfmpEzwzgxb75/11/2021CommentsUnknownSex and Gender InformationValueDate RecordedSex Assigned at BirthNot on fileLegal SexFemale 06/12/2015 11:50 AM EDTGender IdentityNot on fileSexual OrientationNot on file Last Filed Vital Signs Vital SignReadingTime TakenCommentsBlood Ngofddem496/6310/29/2024 4:10 PM EST Lefeb707010/29/2024 4:10 PM MOIOuetayeghol76.8 ??C (98.2 ??F)10/29/2024 2:45 PM ESTRespiratory Fure509210/29/2024 4:10 PM ESTOxygen Uflwarucan973%10/29/2024 4:10 PM ESTInhaled Oxygen Concentration--Pnmbhk057.8 kg (242 lb)10/29/2024 1:59 PM DKOYahxom178.9 cm (5' 1 )10/29/2024 1:59 PM ESTBody Mass Index45.7310/29/2024 1:59 PM EST Plan of Treatment Health MaintenanceDue DateLast DoneCommentsDTaP,Tdap and Td Vaccines (6 - Tdap) , 08/17/1996, 1995, Additional history exists Depression Ywmrsmeyj73/02/2007dult BMI Follow Up Plan2013Pap Smear 2016Influenza Wubophs1607/08/2025dult BMI Jegtczmvu03 Tobacco Zqvzsaxrp35 Medical Devices Not on file Insurance Care Teams Team MemberRelationshipSpecialtyStart DateEnd Date Services, [facility] [address] [place], [place] PCP - GeneralFacaly Sfxsezmr72/5/18
--- OUTSIDE RECORDS SUMMARY | 2025-10-07 10:21 | XMS_ITS | Encounter Summary ---
Author Organization [facility] Address [address] [place] [address] Care Team Providers Care Aircraft Engine Mechanic Name Role Phone Sergey Badillo DO Primary Care Provider [phone] Katie Clark NP Unavailable Encounter Details DateTypeDepartmentCare Team (Latest Contact Info)Qcmxpjxyypn11/21/2025Orders Only DARRIAN ZARATEGYTerrell [address] [place] [address] Marcy Leahy LPN [address] [place], [place] [id number] Social History Tobacco UseTypesPacks/DayYears UsedDateSmoking Tobacco: NeverSmokeless [...] week02/20/2025How often do you attend yazidi or sikhism services?1 to 4 times per year02/20/2025 Do you belong to any clubs or organizations such as yazidi groups, unions, fraPoll Everywhere or athletic groups, or school groups?No02/20/2025How often do you attend meetings of the clubs or organizations you belong to?Never02/20/2025re you , , , , never , or living with a partner?Never lwbujlz2702/20/2025UDIT-CAnswerDate RecordedQ1: How often do you have a [...] Health Questionnaire-2 Score0 05/20/2025[facility] [place] [facility] - Occupational Stress QuestionnaireAnswerDate RecordedDo you feel stress - tense, restless, nervous, or anxious, or unable to sleep at night because yourmind is troubled all the time - these days?To some wmrmot4802/20/2025Exercise Vital SignAnswerDate Recorded On average, how many [...] were you homeless or living in a half-way (including now)?No02/20/2025CommentsNo Sex and Gender InformationValueDate RecordedSex Assigned at BirthNot on file Legal UmiLwdazu39/15/2023 11:01 PM EDTGender IdentityNot on fileSexual OrientationNot on filedocumented as of this encounter Plan of Treatment DateTypeDepartmentCare Team (Latest Contact Info)Zvvtbnroxvx94/08/2025 2:50 PM ESTOffice Visit [facility] OBJOVANNA [address] [place] [address] Ander Vazquez DO [address] [facility] [address] [place], [place] [id number] documented as of this encounter Procedures Procedure NamePriorityDate/TimeAssociated DiagnosisCommentsPAP TEST, EXTERNAL Fribsdu2809/19/2025 12:00 AM ESTdocumented in this encounter Results * PAP TEST, EXTERNAL (09/19/2025 12:00 AM EST) Narrative Authorizing ProviderResult TypeResult StatusFazio Nurse [facility] Ob[facility] CYTOLOGY ORDERABLESFinal ResultPerforming OrganizationAddressCity/State/ZIP CodePhone Number EXTERNAL LAB documented in this encounter Visit Diagnoses Not on filedocumented in this encounter Care Teams Team MemberRelationshipSpecialtyStart DateEnd Date Sergey Badillo DO [address] [place] [address] [facility] Katie Clark NP [address] [place] [address] PCP - Blayne Mckeon07/08/25documented as of this encounter
--- OUTSIDE RECORDS SUMMARY | 2025-10-07 10:21 | XMS_ITS | Encounter Summary ---
Author Organization [facility] Address [address] [place] [address] Care Team Providers Care Assistant Paralegal Name Role Phone Sergey Badillo DO Primary Care Provider [phone] Katie Clark FLIGHT ENGINEER Unavailable Encounter Details DateTypeDepartmentCare Team (Latest Contact Info)Eqhyazrtzbh87/13/2025Clinisync Result Encounter [facility] Unsolicited Katherine Khan PA [address] [place] [address] [address] [place], [place] [id number] Social History Tobacco UseTypesPacks/DayYears UsedDateSmoking Tobacco: NeverSmokeless [...] relatives?Once a week02/20/2025How often do you attend rastafarian or jewish services?1 to 4 times per year02/20/2025 Do you belong to any clubs or organizations such as rastafarian groups, unions, fraternal or athletic groups, or school groups?No02/20/2025How often do you attend meetings of the clubs or organizations you belong to?Never02/20/2025re you , , , , never , or living with a partner?Never lauamkj1902/20/2025UDIT-CAnswerDate RecordedQ1: How often do you have a [...] heating?Not very hard02/20/2025PHQ-2AnswerDate RecordedPatient Health Questionnaire-2 Score0 05/20/2025[facility] [place] of Occupational Health - Occupational Stress QuestionnaireAnswerDate RecordedDo you feel stress - tense, restless, nervous, or anxious, or unable to sleep at night because yourmind is troubled all the time - these days?To some oyjitb8502/20/2025Exercise Vital SignAnswerDate Recorded On average, how many [...] were you homeless or living in a longterm (including now)?No02/20/2025CommentsNo Sex and Gender InformationValueDate RecordedSex Assigned at BirthNot on file Legal QgkSxufix03/15/2023 11:01 PM EDTGender IdentityNot on fileSexual OrientationNot on filedocumented as of this encounter Plan of Treatment DateTypeDepartmentCare Team (Latest Contact Info)Xnalunrrmnw95/08/2025 2:50 PM ESTOffice Visit [facility] Kristi COLEMAN [address] [place] [address] Ander Vazquez DO [address] [place], [place] [phone] documented as of this encounter Procedures Procedure NamePriorityDate/TimeAssociated DiagnosisCommentsIGP,APTIMA HPV,AGE KXBVImktgum20/13/2025 1:48 PM EST documented in this encounter Results * IGP,APTIMA HPV,AGE GDLN (09/19/2025 1:48 PM EST)ComponentValueRef RangeTest MethodAnalysis TimePerformed AtPathologist SignatureAGE GDLN ACOG TESTINGNote. TBHComment: ?? TESTS ? RESULT ??FLAG ??UNITS ?REF RANGE ??LAB ?? Clinician Provided Cytology Information ?? Source.............Cervix;Endocervix ?? No. of containers..01 ThinPrep Vial Age Algo ACOG [place]... ??30-65 ? 01 ?FLAG LEGEND: ?L-Low Normal,H-High Normal,LL-Alert Low,HH-Alert High <-Panic Low,>-Panic High,A-Abnormal,AA-Critical Abnormal Performed at: 01 =G ?[facility] [place] ?? [address] [place] ??[phone] ?? Kimberly Barnard MD, IGP, APTIMA HPV, RFX 16/18,45Note.TBHComment: ?? TESTS ? RESULT ??FLAG ??UNITS ?REF RANGE ??LAB DIAGNOSIS: ?02 ?? NEGATIVE FOR INTRAEPITHELIAL LESION OR MALIGNANCY. Specimen adequacy: ?02 ?? Satisfactory for evaluation. ??Endocervical and/or squamous metaplastic ?? cells (endocervical component) are present. Performed by: ? 02 ?? Moon Corado, Rn Telephone Triage (ASCP) . ? 02 Note: ? Note [...] pap test was interpreted ?? using the kWhOURS(R) Genius(TM) Cervical Algorithm whole ?? slide imaging system. HPV Genotype Reflex ?? Note ?02 ?? Criteria not met, HPV Genotype not performed. ?FLAG LEGEND: ?L-Low Normal,H-High Normal,LL-Alert Low,HH-Alert High <-Panic Low,>-Panic High,A-Abnormal,AA-Critical Abnormal Performed at: 02 WB ?[facility] ?? [address] [place], [place] ??[phone] ?? Kimberly Barnard MD, HPV APTIMANegativeNegativeTBHComment: This nucleic acid amplification test detects fourteen high- risk HPV types (16,18,31,33,35,39,45,51,52,56,58,59,66,68) without differentiation. Performed at: ??=G - [facility] ??[id number] Ruching Machine Operator: Kimberly Barnard MD, Phone: ??[phone] Performed at: ?? - [facility] ??[id number] Ruching Machine Operator: Kimberly Barnard MD, Phone: ??[phone] Specimen (Source)Anatomical Location / LateralityCollection Method / Volume Collection TimeReceived Time09/19/2025 1:48 PM EST09/19/2025 7:54 PM EST Narrative [facility] - 09/24/2025 12:14 PM EST BRUSH-SPATULA CERVIX ENDOCERVIX Authorizing ProviderResult TypeResult StatusAmy Erin GAY BLOOD ORDERABLES Final ResultPerforming OrganizationAddressCity/State/ZIP CodePhone Number [facility] TB documented in this encounter Visit Diagnoses Not on filedocumented in this encounter Care Teams Team MemberRelationshipSpecialtyStart DateEnd Date Kaan, Sergey R, DO [address] [place] [address] [facility] - [facility] Katie Clark NP [address] [place] [address] PCP - [facility]07/08/25documented as of this encounter
[2025-10-07] MEDS: KETOROLAC TROMETHAMINE 30 MG/ML VIAL IM (10:25)
== END 2025-10-07 10:29 | disposition home or self-care (01) ==
LOC: ER 10:18
PROVIDERS: Emergency Provider Emergency Medicine
DX: R07.89 Other chest pain (principal)
CPT/HCPCS: 84703; 96372; 99284; J1885